=== PATIENT | male | born 1970 | race Caucasian/White ===

== ENCOUNTER 2021-03-18 05:08 | Emergency (ER) | payer OTHER ==
[2021-03-18 06:38] LABS: BASOPHIL 0.8 % (0-2); HCT 49.8 % (42.0-52.0); HGB 16.8 g/dl (13.2-18.0); LYMPHOCYTE 32.6 % (15-48); MCH 30.9 pg (25.0-31.0); MCHC 33.7 g/dL (32.0-36.0); MCV 91.7 fL (78.0-100.0); MONOCYTE 6.5 % (0-12); MPV 9.5 fL (6.0-9.5); NEUTROPHIL 56.4 % (41-80); NRBC 0; PLT 301 K/uL (150-400); RBC 5.43 M/uL (4.70-6.00); RDW 13.4 % (11.5-14.0); WBC 7.1 K/uL (4.0-10.5)
[2021-03-18 07:26] LABS: ALBUMIN 3.8 g/dL (3.4-5.0); BILIRUBIN - TOTAL 0.2 mg/dL (0.2-1.0); BUN/CREAT RATIO (CALC) 17.9 RATIO; CREATININE 0.84 mg/dL (0.67-1.17); GLOBULIN (CALCULATION) 4.1 g/dL; POTASSIUM 3.9 mmol/L (3.5-5.1); TOTAL PROTEIN 7.9 g/dL (6.4-8.2)
[2021-03-18 07:41] LABS: BILIRUBIN NEGATIVE (NEGATIVE); BLOOD NEGATIVE Ery/uL (NEGATIVE); CLARITY CLEAR (CLEAR); COLOR YELLOW (YELLOW); GLUCOSE (U) NORMAL (NORMAL); LEUKOCYTES NEGATIVE Leu/uL (NEGATIVE); NITRITE NEGATIVE (NEGATIVE); PROTEIN NEGATIVE (NEGATIVE); SPECIFIC GRAVITY >=1.030 (1.001-1.030); UROBILINOGEN 0.2 mg/dL (0.2-1.0); pH 5.5 (5.0-9.0)
[2021-03-18] MEDS ORDERED: PERCOCET 5-3251 EACH PO (09:09)
[2021-03-18] MEDS ORDERED: MEDROL 4MG DOSEP4 MG PO (09:09)
[2021-03-18] MEDS ORDERED: CYCLOBENZAPRINE10 MG PO (09:09)
== END 2021-03-18 09:35 | disposition home or self-care (01) ==
LOC: FER 05:08
PROVIDERS: Emergency Medicine Emergency Medical Services
DX: S22.42XA Multiple fractures of ribs, left side, initial encounter for closed fracture (principal); M79.604 Pain in right leg; M79.605 Pain in left leg; R10.11 Right upper quadrant pain; Z88.8 Allergy status to other drugs, medicaments and biological substances; Z98.890 Other specified postprocedural states; W55.22XA Struck by cow, initial encounter
CPT/HCPCS: 36415; 71260; 80053; 81003; 82150; 83605; 83690; 85025; 94010; J1170; J1885; J2405; J2930; Q9967